=== PATIENT | male | born 1995 | race Two or more races ===

== ENCOUNTER 2019-05-29 00:14 | Emergency (ER) | payer OTHER, SELFPAY ==
[2019-05-29 01:02] VITALS: BP 114/66; PULSE 98; RESP 20; TEMP 37.7; O2SAT 100
--- NOTE | 2019-05-29 01:36 | ED.URI ---
HPI - URI/Sore Throat General Chief Complaint: Upper Respiratory Infection Stated Complaint: COUGH Time Seen by Provider: 05/29/19 01:22 Source: patient Mode of arrival: ambulatory Limitations: no limitations History of Present Illness HPI Narrative: 23-year-old male Basically healthy Student at [facility] Complains of a 1 day history of cold/flu symptoms including dry cough sinus congestion headache sore throat muscle aches and chills No documented fever No GI or symptoms and no rash MD elicited complaint: fever, cough, sore throat, rhinorrhea, nasal congestion and sinus pain Onset (ago): day(s) Severity: moderate Description of mucous: clear Associated symptoms: chills and headache Related Data Allergies Allergy/AdvReac Type Severity Reaction Status Date / Time No Known Allergies Allergy Unknown Verified 05/29/19 01:10 Review of Systems Constitutional: Constitutional: Reports chills and Reports fatigue ENT: Reports sore throat Respiratory: Respiratory: Reports cough Gastrointestinal: Gastrointestinal: Denies diarrhea and Denies vomiting Genitourinary: Genitourinary: Denies dysuria Musculoskeletal: Musculoskeletal: Reports myalgias PMFSH Past Medical History Medical History Healthy adult Surgical History Surgical History Hx of appendectomy Social History Social History Smoking status: Never smoker Alcohol intake: never Substance use: never Exam Const: General: no acute distress Orientation/consciousness: patient oriented x3 HENMT: Mouth: Yes Normal oral and palatal mucosa present and Yes moist mucous membranes Eyes: Conjunctivae: conjunctivae normal Resp: Effort & Inspection: normal respiratory effort Auscultation: clear to auscultation bilaterally Cardio: Rate: regular rate Rhythm: regular rhythm GI: GI Palp: Yes Soft to palpation and No Tenderness to palpation present (GI) Neuro: General: patient oriented x3 and moves all extremities Course Course Emergency Course: repeat w/ adequate specimen + flu B Vital Signs Vital signs: Vital Signs Temperature 37.7 C H 05/29/19 01:02 Pulse Rate 98 05/29/19 01:02 Respiratory Rate 20 05/29/19 01:02 Blood Pressure 114/66 05/29/19 01:02 Pulse Oximetry 100 05/29/19 01:02 Temperature 37.7 C H 05/29/19 01:02 Pulse Rate 98 05/29/19 01:02 Respiratory Rate 20 05/29/19 01:02 Blood Pressure 114/66 05/29/19 01:02 Pulse Oximetry 100 05/29/19 01:02 MDM - URI/Sore Throat Lab Data Labs: Influenza A Screen Negative Reference Range: Negative Influenza B Screen Negative Reference Range: Negative Discharge Plan Discharge Clinical Impression: Influenza B Patient Disposition: Home, Self-Care Condition: Stable Instructions: Influenza (ED) Prescriptions: New Xofluza 40 mg tablet 40 mg PO ONCE Qty: 2 RF: 0 No Action naproxen 500 mg tablet 500 mg PO BID Qty: 20 RF: 0 cyclobenzaprine 5 mg tablet 5 mg PO TID PRN (Reason: muscle spasm) Qty: 14 RF: 0 hydrocodone-acetaminophen [Sidney] 5-325 mg tablet 1 tablet PO Q6H PRN (Reason: pain) Qty: 14 RF: 0 Follow-up/Referrals: JOVON,MIRANDA [Primary Care Provider] -
[2019-05-29 01:58] VITALS: BP 122/74; PULSE 96; RESP 16; O2SAT 99
== END 2019-05-29 01:58 | disposition home or self-care (01) ==
PROVIDERS: Emergency Provider Emergency Medicine
DX: J10.1 Influenza due to other identified influenza virus with other respiratory manifestations (principal)
CPT/HCPCS: 87804; 99283